=== PATIENT | female | born 1985 | race Caucasian/White ===

== ENCOUNTER 2020-03-30 13:24 | Outpatient (CLI) | payer BC ==
--- NOTE | 2020-03-30 14:49 | RAD ---
CERVICAL SPINE 4 VIEWS: Date: 03/30/2020 PROVIDED CLINICAL HISTORY: Headache and cervical pain. FINDINGS: Cervical alignment appears normal. Vertebral body heights and intervertebral disc space heights appea r preserved. There is no prevertebral soft tissue swelling apparent. There is no evidence for fractur e with limitations due to suboptimal odontoid view. The bony neural foramina apparent patent. The vis ualized lung apices appear clear. IMPRESSION: Unremarkable cervical spine radiographs. POS: AH
== END 2020-03-30 13:25 | disposition home or self-care (01) ==
LOC: MADRAD 13:24
PROVIDERS: ATTEND Family Medicine
DX: M54.2 Cervicalgia (principal)
CPT/HCPCS: 72050

== ENCOUNTER 2020-12-04 10:43 | Outpatient (CLI) | payer BC | END 2020-12-04 10:44 | disposition home or self-care (01) | LOC: MADRAD 10:43 | PROVIDERS: ATTEND Family Medicine | DX: M25.571 Pain in right ankle and joints of right foot (principal) ==